=== PATIENT | male | born 1980 | race African-American/Black ===

== ENCOUNTER 2020-11-02 21:49 | Emergency (ER) | payer MEDICAID ==
[~2020-11-02] VITALS: Ht 182.9 cm; Wt 138.6 kg
[2020-11-02 22:19] VITALS: Ht 182.9 cm; Wt 138.6 kg
[2020-11-02 22:54] LABS: BASOPHILS 0.7 % (0-2); EOSINOPHILS 0.7 % (0-7); HEMATOCRIT 38.3 % (42.0-54.0); HEMOGLOBIN 12.7 g/dL (13.5-17.5); LYMPHOCYTES 25.5 % (15-50); MCH 28.3 pg (26.0-34.0); MCV 85.9 fL (80.0-100.0); MEAN PLATELET VOLUME 7.8 fL (7.4-10.4); MONOCYTES 5.9 % (2-11); NEUTROPHILS 67.2 % (40-80); PLATELET COUNT 387 10x3/uL (130-400); RBC 4.46 10x6/uL (4.20-6.10); WBC 13.8 10x3/uL (4.8-10.8)
[2020-11-02 23:07] LABS: ANION GAP 13.8 mmol/L (8-16); CALCIUM 9.1 mg/dL (8.5-10.1); CARBON DIOXIDE 27.3 mmol/L (21.0-32.0); CREATININE - SERUM 1.2 mg/dL (0.6-1.3); POTASSIUM - SERUM 4.1 mmol/L (3.5-5.1)
[2020-11-02 23:13] LABS: BILIRUBIN - TOTAL 0.41 mg/dL (0.2-1.3); MAGNESIUM - SERUM 1.8 mg/dL (1.8-2.4); PROTEIN - SERUM 8.6 g/dL (6.4-8.2)
--- NOTE | 2020-11-03 00:42 | NUR ---
DR. MA NOTIFIED AND REVIEWED PT'S BEHAVIOR AND ASSESSMENT RESULTS. PT IS A MODERATE RISK PER DR. MA. DR. MA STATED TO GIVE RESOURCES TO PT AT TIME OF DISCHARGE. NO FURTHER ORDERS AT THIS TIME. RESOURCES REVIEWED WITH PT AND HE VERBALIZED UNDERSTANDING.
[2020-11-03 03:18] LABS: BILIRUBIN NEGATIVE (NEGATIVE); KETONE NEGATIVE mg/dL (< 1+); NITRITE NEGATIVE (NEGATIVE); PH 5.5 (5.0-8.0); SQUAMOUS EPITHELIAL <1 HPF (0-4); UROBILINOGEN NORMAL mg/dL (< 2); WHITE CELLS - URINE 2 HPF (0-1)
[2020-11-03 03:23] LABS: UDS - AMPHET NEGATIVE QUAL (NEGATIVE); UDS - BARB NEGATIVE QUAL (NEGATIVE); UDS - BENZO NEGATIVE QUAL (NEGATIVE); UDS - COCAINE NEGATIVE QUAL (NEGATIVE); UDS - OPIATE NEGATIVE QUAL (NEGATIVE); UDS - PCP NEGATIVE QUAL (NEGATIVE); UDS - THC POSITIVE QUAL (NEGATIVE)
[2020-11-03] MEDS ORDERED: HUMALOG 30100 UNITS/ SC (06:29)
[2020-11-03] MEDS ORDERED: LIPITOR40 MG PO (06:29)
[2020-11-03] MEDS ORDERED: GLUCOPHAGE500 MG PO (06:30)
[2020-11-03] MEDS ORDERED: LANTUS INS100 UNITS/ SC (06:31)
[2020-11-03] MEDS ORDERED: LISINOPRIL20 MG PO (06:31)
[2020-11-03 06:36] VITALS: BP 177/100
== END 2020-11-03 09:31 ==
LOC: D.ER 21:49
PROVIDERS: Emergency Medicine
DX: R45.851 Suicidal ideations (principal); R73.9 Hyperglycemia, unspecified; F32.9 Major depressive disorder, single episode, unspecified; I10 Essential (primary) hypertension; E11.9 Type 2 diabetes mellitus without complications